=== PATIENT | male | born 1980 | race American Indian/Alaskan Native ===

== ENCOUNTER 2016-05-11 07:26 | Outpatient (CLI) | payer OTHER ==
--- NOTE | 2016-05-12 13:24 | Nuclear Medicine Report ---
NUCLEAR MEDICINE THYROID UPTAKE MULTIPLE History: Euthyroid goiter. Findings: The scintigraphic images of the thyroid gland are unremarkable. No hot or cold nodule. 4 hour uptake measures 5.9%. Normal range: 5-15% 26 hour uptake measures 14.3%. Normal range: 8-35%.
== END 2016-05-11 07:27 | disposition home or self-care (01) ==
LOC: NM 07:26
PROVIDERS: ATTEND Internal Medicine
DX: E04.9 Nontoxic goiter, unspecified (principal)
CPT/HCPCS: 78012; A9516

== ENCOUNTER 2017-11-23 07:25 | Day surgery (SDC) | payer OTHER ==
--- NOTE | 2017-11-23 11:14 | Ultrasound Report ---
ULTRASOUND BIOPSY THYROID History: Goiter. Description of procedure: Informed consent was obtained. Sterile technique was utilized. 1% lidocaine for skin anesthesia. Using ultrasound guidance, 2 fine needle aspirations were obtained from a left thyroid lobe nodule measuring 3.0 x 2.4 x 2.5 cm. The samples were deemed adequate by the pathologist on site. No complications. Impression: Successful ultrasound-guided fine needle aspiration of the dominant left thyroid lobe nodule as described. No complications.
--- NOTE | 2017-11-23 11:35 | Short Stay Summary ---
Short Stay Documentation Date of service: 11/23/17 - History Principal diagnosis: thyroid nodules H&P: obtained from office - Allergies and Medications Current Medications: Allergies Penicillins Adverse Reaction (Unverified 03/02/16 09:41) Unknown shellfish derived Adverse Reaction (Unverified 03/02/16 09:41) Swelling OF FACE/ITCHING - Physical exam General appearance: no acute distress HEENT: Other (prominent thyroid) - Brief post op/procedure progress note Date of procedure: 11/23/17 Pre-op diagnosis: thyroid nodules Post-op diagnosis: same Procedure: US thyroid FNA Anesthesia: local Findings: multiple nodules Surgeon: ERMA WRIGHT Estimated blood loss: none Pathology: list (FNA x 2) Specimen disposition: to lab Condition: stable - Disposition Condition at discharge: Good Disposition: [id number] TO HOME OR SELFCARE Short Stay Discharge Plan Follow up with: ISABEL MCKEON MD [Primary Care Provider] - 7 Days
[2017-11-23 12:03] VITALS: BP 129/83
== END 2017-11-23 12:03 | disposition home or self-care (01) ==
LOC: CATHLABREC 07:25 → EDSTATUS 09:00 → CATHLABREC 12:03
PROVIDERS: ATTEND Internal Medicine
DX: E04.2 Nontoxic multinodular goiter (principal); E78.00 Pure hypercholesterolemia, unspecified; F17.200 Nicotine dependence, unspecified, uncomplicated; Z91.013 Allergy to seafood; Z88.0 Allergy status to penicillin
CPT/HCPCS: 10022; 60100; 76942; 88112; 88172; 88173; 88305